=== PATIENT | male | born 1950 | race African-American/Black ===

== ENCOUNTER 2021-08-13 08:32 | Inpatient (IN) | payer OTHER ==
[2021-08-13] MEDS ORDERED: Boostrix 0.5 ML (Tdap) VIAL ONE (08:46)
[2021-08-13] MEDS ORDERED: Calcium Chloride 1 GM/10 ML Abboject SYRINGE ONE (08:57)
[2021-08-13 09:01] LABS: #Basophils 0.1 thou/uL (0.0-0.2); #Eosinphils 0.2 thou/uL (0.0-0.7); #Lymphocytes 2.1 thou/uL (1.20-3.40); #Monocytes 0.5 thou/uL (0.11-0.59); #Neutrophils 9.6 thou/uL (1.40-6.50); %Basophils 0.4 % (0.0-1.0); %Eosinophils 1.5 % (0.0-10.0); %Lymphocytes 16.9 % (21.0-51.0); %Monocytes 3.8 % (0.0-10.0); %Neutrophils 77.4 % (42.0-75.0); Hemoglobin 10.9 g/dL (14.0-18.0); Mean Corpuscular HGB CONC 31.4 g/dL (32.0-36.0); Mean Corpuscular Hemoglobin 27.9 pg (27.0-31.0); Mean Corpuscular Volume 88.8 fL (78.0-98.0); Mean Platelet Volume 8.9 fL (7.4-10.4); Platelet Count 155 thou/uL (130-400); RBC Distribution Width 13.7 % (11.5-14.5); White Blood Cell (WBC) Count 12.4 thou/uL (4.8-10.8)
[2021-08-13] MEDS ORDERED: Ondansetron PF 4 MG/2 ML Vial ONE ×2 (09:06→15:20)
[2021-08-13 09:10] LABS: Bilirubin Negative (Negative); Blood, Urine 2+ (Negative); Clarity Turbid (Clear); Glucose, Urine (Dipstick) Normal (Negative); Ketone, Urine Negative (Negative); Leukocyte 250 Leu/uL (Negative); Nitrite Negative (Negative); Protein, Urine (Dipstick) Negative (Neg-Trace); RBC/HPF 21-50 HPF (0-3); Specific Gravity, Urine 1.024 (1.002-1.036); Squamous Epithelial 0-3 HPF (0-3); Urobilinogen Normal mg/dL (Less than 2)
[2021-08-13 09:11] LABS: Bacteria/HPF Rare-Few HPF (None Seen)
[2021-08-13 09:12] LABS: Prothrombin Time 13.6 sec (12.0-14.7)
[2021-08-13 09:14] LABS: ALT (SGPT) 20 U/L (8-55); AST (SGOT) 30 U/L (5-34); Albumin 3.2 g/dL (3.4-4.8); Alcohol Less than 10 mg/dL (Less than 10); Alkaline Phosphatase 76 U/L (40-110); Anion Gap 17 mmol/L (10-20); BUN (Urea Nitrogen) 24 mg/dL (8.4-25.7); Bilirubin, Total 0.4 mg/dL (0.2-1.2); Calc. Creatinine Clearance 0 mL/min (70-130); Calcium 8.7 mg/dL (7.8-10.44); Carbon Dioxide 19 mmol/L (23-31); Chloride 106 mmol/L (98-107); Globulin 2.2 g/dL (2.4-3.5); Glucose 208 mg/dL (83-110); Potassium 4.9 mmol/L (3.5-5.1); Protein, Total 5.4 g/dL (5.8-8.1); Sodium 137 mmol/L (136-145)
[2021-08-13 09:18] LABS: PTT 17.9 sec (22.9-36.1)
[2021-08-13] MEDS ORDERED: Iopamidol-370 76% 500 ML 1 ML ONE ×2 (09:22→09:26)
[2021-08-13 09:32] LABS: Actual Bicarbonate (HCO3a) 18.1 mEq/L (22-28); Analyzer IN Cardio ER; Base Excess (BEa) -7.1 mEq/L (-2.0 to +3.0); CO2 Tension 35.2 mmHg (35.0-45.0); Calcium, Ionized (arterial) 0.91 mmol/L (1.12-1.30); Carboxyhemoglobin (COHb) 0.3 gm% (0.0-3.0); Hemoglobin (Hb) 11.5 g/dL (14.0-18.0); O2 Tension (PaO2), arterial 223.2 mmHg (> 70.0); Potassium - ABG Lab 4.46 mmol/L (3.70-5.30); pH, Arterial 7.33 (7.35-7.45)
[2021-08-13 09:33] LABS: Puncture Site RRA
[2021-08-13] MEDS ORDERED: Insulin Regular 300 UNITS/3 ML VIAL SC PRN (09:39)
[2021-08-13] MEDS ORDERED: Dextrose 5% in Water 1,000 ML IV PRN (09:39)
[2021-08-13] MEDS ORDERED: Dextrose 50% Abboject 50 ML SYRINGE SLOW IVP PRN (09:39)
[2021-08-13] MEDS ORDERED: Morphine 2 MG/ML VIAL SLOW IVP PRN (09:39)
[2021-08-13] MEDS ORDERED: hydrALAZINE 20 MG/ML VIAL SLOW IVP PRN (09:39)
[2021-08-13] MEDS ORDERED: Ondansetron PF 4 MG/2 ML Vial IVP PRN (09:39)
[2021-08-13] MEDS ORDERED: Sodium Chloride 0.9% 1,000 ML IV SCH (09:45)
[2021-08-13] MEDS ORDERED: Fentanyl 100 MCG/2 ML VIAL ONE ×2 (09:49→16:47)
[2021-08-13 09:51] LABS: Magnesium 1.8 mg/dL (1.6-2.6); Phosphorus 5.5 mg/dL (2.3-4.7)
[2021-08-13] MEDS ORDERED: Sodium Bicarbonate 150 MEQ in Dextrose 5% in Water 1,000 ML IV SCH (10:00)
[2021-08-13] MEDS ORDERED: Sodium Bicarb 50 MEQ/50 ML VIAL IVP SCH (10:00)
[2021-08-13] MEDS: Morphine 4 MG/ML VIAL SLOW IVP PRN ×2 (11:46→20:19)
[2021-08-13 12:00] LABS: SARS-CoV-2 NAA Rapid Test Not Detected (NotDetected)
[2021-08-13] MEDS ORDERED: Magnesium 2 GM/50 ML(in water) 2 GM in Premix Bag 1 BAG IVPB SCH (12:00)
[2021-08-13] MEDS ORDERED: ceFAZolin 2 GM/Dextrose 50 ML 2 GM in Premix Bag 1 BAG IVPB SCH (13:30)
[2021-08-13] MEDS ORDERED: CEFAZOLIN 2 GM in Sodium Chloride 0.9% 100 ML IVPB SCH ×2 (14:00→15:00)
[2021-08-13] MEDS ORDERED: Lidocaine 2% Jelly 5 ML TUBE ONE (14:45)
[2021-08-13] MEDS ORDERED: fentaNYL Citrate/PF 100 MCG/2 ML SYRINGE ONE (14:45)
[2021-08-13] MEDS ORDERED: Glycopyrrolate 0.2 MG/ML 5 ML SYRINGE ONE ×2 (15:20→17:26)
[2021-08-13] MEDS ORDERED: PHENYLEPHRINE-NS 100 MCG/ML 10 ML SYRINGE ONE (15:20)
[2021-08-13] MEDS ORDERED: Succinylcholine 200 MG/10 ml SYRINGE FS ONE (15:20)
[2021-08-13] MEDS ORDERED: Lidocaine 1% PF 5 ML VIAL ONE (15:20)
[2021-08-13] MEDS ORDERED: Dexamethasone 20 MG/5 ML VIAL ONE (15:20)
[2021-08-13] MEDS ORDERED: PROPOFOL 200 MG/20 ML VIAL ONE (15:20)
[2021-08-13] MEDS ORDERED: Rocuronium Bromide 10 MG/ML (10ML VIAL) ONE (15:20)
[2021-08-13 18:37] LABS: #Lymphocytes 0.3 thou/uL (1.20-3.40); #Monocytes 0.2 thou/uL (0.11-0.59); #Neutrophils 6.1 thou/uL (1.40-6.50); %Eosinophils 0.1 % (0.0-10.0); %Lymphocytes 3.9 % (21.0-51.0); %Monocytes 3.2 % (0.0-10.0); %Neutrophils 92.8 % (42.0-75.0); Hemoglobin 11.2 g/dL (14.0-18.0); Mean Corpuscular HGB CONC 32.2 g/dL (32.0-36.0); Mean Corpuscular Hemoglobin 28.5 pg (27.0-31.0); Mean Corpuscular Volume 88.7 fL (78.0-98.0); Mean Platelet Volume 7.9 fL (7.4-10.4); Platelet Count 171 thou/uL (130-400); RBC Distribution Width 14.1 % (11.5-14.5); Red Blood Cell (RBC) Count 3.93 mill/uL (4.70-6.10); White Blood Cell (WBC) Count 6.6 thou/uL (4.8-10.8)
[2021-08-13 18:58] LABS: Anion Gap 13 mmol/L (10-20); BUN (Urea Nitrogen) 20 mg/dL (8.4-25.7); Calc. Creatinine Clearance 123 mL/min (70-130); Calcium 8.7 mg/dL (7.8-10.44); Carbon Dioxide 25 mmol/L (23-31); Chloride 106 mmol/L (98-107); Glucose 144 mg/dL (83-110); Magnesium 2.3 mg/dL (1.6-2.6); Phosphorus 4.7 mg/dL (2.3-4.7); Potassium 4.6 mmol/L (3.5-5.1); Sodium 139 mmol/L (136-145)
[2021-08-13 19:02] LABS: Troponin I 0.093 ng/mL (< 0.028)
[2021-08-13] MEDS: Pantoprazole 40 MG VIAL IVP SCH (20:21)
[2021-08-13] MEDS ORDERED: Famotidine/PF 20 mg/2ml Vial SLOW IVP SCH (21:00)
[2021-08-13] MEDS: CEFAZOLIN 2 GM in Sodium Chloride 0.9% 100 ML IVPB SCH (22:36)
[2021-08-14 00:24] LABS: Troponin I 0.052 ng/mL (< 0.028)
[2021-08-14] MEDS: Morphine 4 MG/ML VIAL SLOW IVP PRN ×3 (02:10→08:28)
[2021-08-14] MEDS ORDERED: Sodium Chloride 0.9% 1,000 ML IV SCH ×2 (02:15→16:30)
[2021-08-14 04:05] LABS: #Lymphocytes 0.9 thou/uL (1.20-3.40); #Monocytes 0.5 thou/uL (0.11-0.59); #Neutrophils 5.6 thou/uL (1.40-6.50); %Basophils 0.3 % (0.0-1.0); %Eosinophils 0.1 % (0.0-10.0); %Lymphocytes 13.2 % (21.0-51.0); %Monocytes 6.5 % (0.0-10.0); %Neutrophils 79.9 % (42.0-75.0); Hemoglobin 10.8 g/dL (14.0-18.0); Mean Corpuscular HGB CONC 33.2 g/dL (32.0-36.0); Mean Corpuscular Hemoglobin 29.4 pg (27.0-31.0); Mean Corpuscular Volume 88.5 fL (78.0-98.0); Mean Platelet Volume 8.4 fL (7.4-10.4); Platelet Count 159 thou/uL (130-400); RBC Distribution Width 14.3 % (11.5-14.5); Red Blood Cell (RBC) Count 3.67 mill/uL (4.70-6.10)
[2021-08-14 04:36] LABS: Anion Gap 11 mmol/L (10-20); BUN (Urea Nitrogen) 18 mg/dL (8.4-25.7); Calc. Creatinine Clearance 136 mL/min (70-130); Calcium 8.6 mg/dL (7.8-10.44); Carbon Dioxide 26 mmol/L (23-31); Chloride 106 mmol/L (98-107); Glucose 140 mg/dL (83-110); Magnesium 2.3 mg/dL (1.6-2.6); Phosphorus 4.9 mg/dL (2.3-4.7); Potassium 4.4 mmol/L (3.5-5.1); Sodium 139 mmol/L (136-145)
[2021-08-14 05:02] LABS: CK (CPK) 8323 U/L (30-200)
[2021-08-14] MEDS: CEFAZOLIN 2 GM in Sodium Chloride 0.9% 100 ML IVPB SCH (05:19)
[2021-08-14] MEDS ORDERED: traMADol HCl 50 MG TAB PO PRN (09:14)
[2021-08-14] MEDS: Acetaminophen 500 MG TAB PO SCH ×3 (11:01→21:45)
[2021-08-14] MEDS: Enoxaparin Sodium 30 MG/0.3 ML SYRINGE SC SCH ×2 (11:01→21:44)
[2021-08-14] MEDS: traMADol HCl 50 MG TAB PO SCH ×3 (12:42→23:47)
[2021-08-14] MEDS: Gabapentin 100 MG CAP PO SCH ×2 (15:53→21:44)
[2021-08-14] MEDS: Ibuprofen 200 MG TAB PO SCH ×2 (15:54→21:45)
[2021-08-14] MEDS: Pantoprazole 40 MG VIAL IVP SCH (21:44)
[2021-08-14] MEDS: Senokot S 8.6-50 MG TAB PO SCH (21:44)
[2021-08-15] MEDS: Acetaminophen 500 MG TAB PO SCH ×4 (03:45→21:05)
[2021-08-15] MEDS: Morphine 2 MG/ML VIAL SLOW IVP PRN ×2 (03:46→10:18)
[2021-08-15] MEDS: traMADol HCl 50 MG TAB PO SCH ×4 (05:11→23:47)
[2021-08-15] MEDS: Ibuprofen 200 MG TAB PO SCH ×3 (05:11→21:05)
[2021-08-15 05:46] LABS: #Eosinphils 0.3 thou/uL (0.0-0.7); #Lymphocytes 1.1 thou/uL (1.20-3.40); #Monocytes 0.6 thou/uL (0.11-0.59); #Neutrophils 6.3 thou/uL (1.40-6.50); %Basophils 0.1 % (0.0-1.0); %Eosinophils 3.8 % (0.0-10.0); %Lymphocytes 12.9 % (21.0-51.0); %Monocytes 6.9 % (0.0-10.0); %Neutrophils 76.3 % (42.0-75.0); Hemoglobin 9.7 g/dL (14.0-18.0); Mean Corpuscular Hemoglobin 29.8 pg (27.0-31.0); Mean Corpuscular Volume 90.3 fL (78.0-98.0); Mean Platelet Volume 9.1 fL (7.4-10.4); Platelet Count 122 thou/uL (130-400); RBC Distribution Width 13.9 % (11.5-14.5); Red Blood Cell (RBC) Count 3.26 mill/uL (4.70-6.10); White Blood Cell (WBC) Count 8.3 thou/uL (4.8-10.8)
[2021-08-15 06:17] LABS: Anion Gap 14 mmol/L (10-20); BUN (Urea Nitrogen) 14 mg/dL (8.4-25.7); Calc. Creatinine Clearance 162 mL/min (70-130); Calcium 8.6 mg/dL (7.8-10.44); Carbon Dioxide 24 mmol/L (23-31); Chloride 103 mmol/L (98-107); Glucose 104 mg/dL (83-110); Magnesium 2.1 mg/dL (1.6-2.6); Phosphorus 3.3 mg/dL (2.3-4.7); Potassium 4.5 mmol/L (3.5-5.1); Sodium 136 mmol/L (136-145)
[2021-08-15] MEDS ORDERED: PHOS-NAK 1 PKT PACK PO SCH (07:45)
[2021-08-15] MEDS ORDERED: ceFAZolin 2 GM/Dextrose 50 ML 2 GM in Premix Bag 1 BAG IVPB SCH (08:30)
[2021-08-15] MEDS ORDERED: CEFAZOLIN 2 GM in Sodium Chloride 0.9% 100 ML IVPB SCH (08:30)
[2021-08-15] MEDS: Enoxaparin Sodium 30 MG/0.3 ML SYRINGE SC SCH ×2 (09:07→21:14)
[2021-08-15] MEDS: Senokot S 8.6-50 MG TAB PO SCH ×2 (09:20→21:05)
[2021-08-15] MEDS: Polyethylene Glycol 3350 17 GM Packet PO SCH (09:20)
[2021-08-15] MEDS: Gabapentin 100 MG CAP PO SCH ×3 (09:20→21:04)
[2021-08-15] MEDS: Cyclobenzaprine 10 MG TAB PO PRN (09:23)
[2021-08-15] MEDS: Pantoprazole 40 MG VIAL IVP SCH (21:05)
[2021-08-16] MEDS: Acetaminophen 500 MG TAB PO SCH ×4 (03:22→21:31)
[2021-08-16] MEDS: traMADol HCl 50 MG TAB PO SCH ×4 (05:30→23:13)
[2021-08-16] MEDS: Ibuprofen 200 MG TAB PO SCH ×3 (05:37→21:31)
[2021-08-16 05:40] LABS: #Eosinphils 0.5 thou/uL (0.0-0.7); #Lymphocytes 1.4 thou/uL (1.20-3.40); #Monocytes 0.6 thou/uL (0.11-0.59); #Neutrophils 7.7 thou/uL (1.40-6.50); %Basophils 0.3 % (0.0-1.0); %Eosinophils 4.9 % (0.0-10.0); %Lymphocytes 13.6 % (21.0-51.0); %Monocytes 5.7 % (0.0-10.0); %Neutrophils 75.5 % (42.0-75.0); Hemoglobin 8.9 g/dL (14.0-18.0); Mean Corpuscular HGB CONC 32.1 g/dL (32.0-36.0); Mean Corpuscular Hemoglobin 29.4 pg (27.0-31.0); Mean Corpuscular Volume 91.4 fL (78.0-98.0); Platelet Count 121 thou/uL (130-400); RBC Distribution Width 13.7 % (11.5-14.5); Red Blood Cell (RBC) Count 3.01 mill/uL (4.70-6.10); White Blood Cell (WBC) Count 10.2 thou/uL (4.8-10.8)
[2021-08-16 05:51] LABS: Anion Gap 13 mmol/L (10-20); BUN (Urea Nitrogen) 16 mg/dL (8.4-25.7); Calc. Creatinine Clearance 165 mL/min (70-130); Carbon Dioxide 27 mmol/L (23-31); Chloride 99 mmol/L (98-107); Glucose 102 mg/dL (83-110); Magnesium 2.3 mg/dL (1.6-2.6); Phosphorus 3.4 mg/dL (2.3-4.7); Potassium 4.6 mmol/L (3.5-5.1); Sodium 134 mmol/L (136-145)
[2021-08-16 06:04] LABS: CK (CPK) 5440 U/L (30-200)
[2021-08-16] MEDS ORDERED: PHOS-NAK 1 PKT PACK PO SCH (08:00)
[2021-08-16] MEDS: Gabapentin 100 MG CAP PO SCH ×3 (08:17→21:30)
[2021-08-16] MEDS: Polyethylene Glycol 3350 17 GM Packet PO SCH (08:17)
[2021-08-16] MEDS: Enoxaparin Sodium 30 MG/0.3 ML SYRINGE SC SCH ×2 (08:17→21:33)
[2021-08-16] MEDS: Tamsulosin HCl 0.4 MG CAP PO SCH (08:17)
[2021-08-16] MEDS: Senokot S 8.6-50 MG TAB PO SCH ×2 (08:17→21:31)
[2021-08-16] MEDS: Cyclobenzaprine 10 MG TAB PO PRN ×2 (08:19→16:30)
[2021-08-16] MEDS ORDERED: fentaNYL Citrate/PF 100 MCG/2 ML SYRINGE ONE ×2 (10:24→13:25)
[2021-08-16] MEDS ORDERED: Sodium Chloride 0.9% 100 ML ONE (11:13)
[2021-08-16] MEDS ORDERED: CEFAZOLIN 2 GM VIAL ONE (11:13)
[2021-08-16] MEDS ORDERED: PHENYLEPHRINE-NS 100 MCG/ML 10 ML SYRINGE ONE (12:40)
[2021-08-16] MEDS ORDERED: Promethazine HCl 25 MG/ML VIAL IVPB PRN (14:51)
[2021-08-16] MEDS ORDERED: Morphine Sulfate 2 MG/ML SYRINGE SLOW IVP PRN (14:51)
[2021-08-16] MEDS ORDERED: HYDROmorphone 2 MG/ML VIAL SLOW IVP PRN (14:51)
[2021-08-16] MEDS ORDERED: Meperidine HCl/PF 25 MG/ML VIAL SLOW IVP PRN (14:51)
[2021-08-16] MEDS ORDERED: Promethazine HCl 25 MG/ML VIAL IM PRN (14:51)
[2021-08-16] MEDS ORDERED: Ondansetron HCl/PF 4 MG/2 ML Vial IVP PRN (14:51)
[2021-08-16] MEDS ORDERED: Fentanyl 100 MCG/2 ML VIAL ONE ×2 (15:00→15:18)
[2021-08-16] MEDS: Morphine 2 MG/ML VIAL SLOW IVP PRN (16:30)
[2021-08-16] MEDS: CEFAZOLIN 2 GM in Sodium Chloride 0.9% 100 ML IVPB SCH (18:04)
[2021-08-16] MEDS: Atorvastatin Calcium 20 MG TAB PO SCH (21:30)
[2021-08-16] MEDS: Pantoprazole 40 MG VIAL IVP SCH (21:31)
[2021-08-17] MEDS: CEFAZOLIN 2 GM in Sodium Chloride 0.9% 100 ML IVPB SCH ×3 (02:59→18:35)
[2021-08-17] MEDS: Acetaminophen 500 MG TAB PO SCH ×4 (02:59→21:15)
[2021-08-17] MEDS: traMADol HCl 50 MG TAB PO SCH ×3 (05:27→17:06)
[2021-08-17] MEDS: Ibuprofen 200 MG TAB PO SCH ×3 (05:27→21:16)
[2021-08-17 05:59] LABS: #Eosinphils 0.1 thou/uL (0.0-0.7); #Lymphocytes 1.1 thou/uL (1.20-3.40); #Monocytes 0.7 thou/uL (0.11-0.59); #Neutrophils 8.8 thou/uL (1.40-6.50); %Basophils 0.2 % (0.0-1.0); %Eosinophils 1.3 % (0.0-10.0); %Monocytes 6.2 % (0.0-10.0); %Neutrophils 82.3 % (42.0-75.0); Hemoglobin 8.3 g/dL (14.0-18.0); Mean Corpuscular HGB CONC 32.4 g/dL (32.0-36.0); Mean Corpuscular Hemoglobin 29.7 pg (27.0-31.0); Mean Corpuscular Volume 91.6 fL (78.0-98.0); Mean Platelet Volume 9.1 fL (7.4-10.4); Platelet Count 144 thou/uL (130-400); Red Blood Cell (RBC) Count 2.81 mill/uL (4.70-6.10); White Blood Cell (WBC) Count 10.7 thou/uL (4.8-10.8)
[2021-08-17 06:35] LABS: Anion Gap 13 mmol/L (10-20); BUN (Urea Nitrogen) 15 mg/dL (8.4-25.7); Calc. Creatinine Clearance 175 mL/min (70-130); Calcium 8.4 mg/dL (7.8-10.44); Carbon Dioxide 25 mmol/L (23-31); Chloride 99 mmol/L (98-107); Glucose 115 mg/dL (83-110); Magnesium 2.1 mg/dL (1.6-2.6); Phosphorus 3.2 mg/dL (2.3-4.7); Potassium 4.7 mmol/L (3.5-5.1); Sodium 132 mmol/L (136-145)
[2021-08-17] MEDS ORDERED: PHOS-NAK 1 PKT PACK PO SCH (07:30)
[2021-08-17] MEDS ORDERED: Bisacodyl 10 MG SUPP PR SCH (07:30)
[2021-08-17] MEDS: Tamsulosin HCl 0.4 MG CAP PO SCH (09:30)
[2021-08-17] MEDS: Senokot S 8.6-50 MG TAB PO SCH ×2 (09:31→21:15)
[2021-08-17] MEDS: Lisinopril 20 MG TAB PO SCH (09:31)
[2021-08-17] MEDS: Gabapentin 100 MG CAP PO SCH ×3 (09:31→21:15)
[2021-08-17] MEDS: Polyethylene Glycol 3350 17 GM Packet PO SCH (09:32)
[2021-08-17] MEDS: Enoxaparin Sodium 30 MG/0.3 ML SYRINGE SC SCH ×2 (09:32→21:14)
[2021-08-17] MEDS ORDERED: Sodium Chloride 0.9% 1,000 ML IV SCH (14:45)
[2021-08-17] MEDS ORDERED: Hydrocortisone Sod Succ/PF 100 mg/2 ml Vial IVP SCH (16:00)
[2021-08-17] MEDS: Atorvastatin Calcium 20 MG TAB PO SCH (21:14)
[2021-08-17] MEDS: Pantoprazole 40 MG VIAL IVP SCH (21:15)
[2021-08-18] MEDS: traMADol HCl 50 MG TAB PO SCH ×4 (00:12→17:58)
[2021-08-18] MEDS: Hydrocortisone Sod Succ/PF 100 mg/2 ml Vial IVP SCH ×4 (00:13→17:58)
[2021-08-18] MEDS: Acetaminophen 500 MG TAB PO SCH ×4 (03:06→20:27)
[2021-08-18] MEDS: CEFAZOLIN 2 GM in Sodium Chloride 0.9% 100 ML IVPB SCH ×3 (03:07→20:16)
[2021-08-18 05:27] LABS: #Eosinphils 0.1 thou/uL (0.0-0.7); #Lymphocytes 0.8 thou/uL (1.20-3.40); #Monocytes 0.6 thou/uL (0.11-0.59); #Neutrophils 9.6 thou/uL (1.40-6.50); %Basophils 0.1 % (0.0-1.0); %Eosinophils 0.6 % (0.0-10.0); %Lymphocytes 7.3 % (21.0-51.0); %Monocytes 5.2 % (0.0-10.0); %Neutrophils 86.8 % (42.0-75.0); Hemoglobin 6.9 g/dL (14.0-18.0); Mean Corpuscular HGB CONC 33.2 g/dL (32.0-36.0); Mean Corpuscular Hemoglobin 30.5 pg (27.0-31.0); Mean Corpuscular Volume 91.8 fL (78.0-98.0); Mean Platelet Volume 8.5 fL (7.4-10.4); Platelet Count 129 thou/uL (130-400); RBC Distribution Width 14.1 % (11.5-14.5); Red Blood Cell (RBC) Count 2.27 mill/uL (4.70-6.10); White Blood Cell (WBC) Count 11.1 thou/uL (4.8-10.8)
[2021-08-18] MEDS: Ibuprofen 200 MG TAB PO SCH ×3 (05:48→22:41)
[2021-08-18 05:51] LABS: Anion Gap 10 mmol/L (10-20); BUN (Urea Nitrogen) 24 mg/dL (8.4-25.7); Calc. Creatinine Clearance 162 mL/min (70-130); Calcium 8.4 mg/dL (7.8-10.44); Carbon Dioxide 28 mmol/L (23-31); Chloride 100 mmol/L (98-107); Glucose 139 mg/dL (83-110); Magnesium 2.3 mg/dL (1.6-2.6); Phosphorus 3.6 mg/dL (2.3-4.7); Potassium 4.8 mmol/L (3.5-5.1); Sodium 133 mmol/L (136-145)
[2021-08-18] MEDS ORDERED: PHOS-NAK 1 PKT PACK PO SCH (07:45)
[2021-08-18] MEDS: Polyethylene Glycol 3350 17 GM Packet PO SCH (08:28)
[2021-08-18] MEDS: Ascorbic Acid 500 mg Chewable Tablet PO SCH ×2 (08:29→20:17)
[2021-08-18] MEDS: Senokot S 8.6-50 MG TAB PO SCH ×2 (08:29→20:17)
[2021-08-18] MEDS: Tamsulosin HCl 0.4 MG CAP PO SCH (08:29)
[2021-08-18] MEDS: Gabapentin 100 MG CAP PO SCH ×3 (08:29→20:27)
[2021-08-18] MEDS: Ferrous Sulfate 325 MG TAB PO SCH ×2 (08:29→17:58)
[2021-08-18] MEDS: Enoxaparin Sodium 30 MG/0.3 ML SYRINGE SC SCH ×2 (08:30→20:17)
[2021-08-18] MEDS: Lisinopril 20 MG TAB PO SCH (08:30)
[2021-08-18] MEDS: Atorvastatin Calcium 20 MG TAB PO SCH (20:17)
[2021-08-18] MEDS: Pantoprazole 40 MG VIAL IVP SCH (20:18)
[2021-08-19] MEDS: Hydrocortisone Sod Succ/PF 100 mg/2 ml Vial IVP SCH ×4 (00:14→18:15)
[2021-08-19] MEDS: traMADol HCl 50 MG TAB PO SCH ×4 (00:14→18:15)
[2021-08-19] MEDS: Acetaminophen 500 MG TAB PO SCH ×3 (04:15→15:45)
[2021-08-19] MEDS: CEFAZOLIN 2 GM in Sodium Chloride 0.9% 100 ML IVPB SCH ×3 (04:16→18:16)
[2021-08-19 05:59] LABS: Anion Gap 11 mmol/L (10-20); BUN (Urea Nitrogen) 19 mg/dL (8.4-25.7); Calc. Creatinine Clearance 181 mL/min (70-130); Calcium 8.9 mg/dL (7.8-10.44); Carbon Dioxide 26 mmol/L (23-31); Chloride 100 mmol/L (98-107); Glucose 122 mg/dL (83-110); Magnesium 2.3 mg/dL (1.6-2.6); Phosphorus 2.7 mg/dL (2.3-4.7); Potassium 4.4 mmol/L (3.5-5.1); Sodium 133 mmol/L (136-145)
[2021-08-19] MEDS: Ibuprofen 200 MG TAB PO SCH (06:10)
[2021-08-19 06:23] LABS: Band 10 % (5-11); Lymphocytes 13 % (21-51); MDiff Complete? YES; Mean Corpuscular HGB CONC 33.4 g/dL (32.0-36.0); Mean Corpuscular Hemoglobin 30.9 pg (27.0-31.0); Mean Corpuscular Volume 92.3 fL (78.0-98.0); Mean Platelet Volume 8.1 fL (7.4-10.4); Monocytes 4 % (0-10); Neutrophil 73 % (42-75); Platelet Count 168 thou/uL (130-400); RBC Distribution Width 14.1 % (11.5-14.5); Red Blood Cell (RBC) Count 2.58 mill/uL (4.70-6.10); White Blood Cell (WBC) Count 13.3 thou/uL (4.8-10.8)
[2021-08-19] MEDS ORDERED: Ibuprofen 200 MG TAB PO PRN (07:26)
[2021-08-19] MEDS ORDERED: PHOS-NAK 1 PKT PACK PO SCH (07:30)
[2021-08-19] MEDS ORDERED: Magnesium Citrate 300 ML BOT PO SCH (08:45)
[2021-08-19] MEDS: Tamsulosin HCl 0.4 MG CAP PO SCH (10:01)
[2021-08-19] MEDS: Polyethylene Glycol 3350 17 GM Packet PO SCH (10:01)
[2021-08-19] MEDS: Ascorbic Acid 500 mg Chewable Tablet PO SCH ×2 (10:01→19:42)
[2021-08-19] MEDS: Ferrous Sulfate 325 MG TAB PO SCH ×2 (10:01→18:15)
[2021-08-19] MEDS: Senokot S 8.6-50 MG TAB PO SCH (10:01)
[2021-08-19] MEDS: Lisinopril 20 MG TAB PO SCH (10:02)
[2021-08-19] MEDS: Enoxaparin Sodium 30 MG/0.3 ML SYRINGE SC SCH ×2 (10:02→19:44)
[2021-08-19] MEDS: Gabapentin 100 MG CAP PO SCH ×3 (10:02→19:43)
[2021-08-19 14:31] VITALS: BMI 45.0
[2021-08-19] MEDS: Pantoprazole 40 MG VIAL IVP SCH (19:44)
[2021-08-19] MEDS: Atorvastatin Calcium 20 MG TAB PO SCH (19:44)
[2021-08-19 19:57] VITALS: BP 126/68; TEMP 97.8
== END 2021-08-19 20:07 | DRG 956 ==
LOC: ERS 08:32 → CCU 08:44 → SURG A 08-14 22:34
PROVIDERS: ADMIT Surgery; ATTEND Surgery
PROC: 0QH Lower Bones, Insertion (ICD-10-PCS; 2021-08-13)
PROC: 0QHG05Z Insertion of External Fixation Device into Right Tibia, Open Approach (ICD-10-PCS; 2021-08-13)
PROC: 30233K1 Transfusion of Nonautologous Frozen Plasma into Peripheral Vein, Percutaneous Approach (ICD-10-PCS; 2021-08-13)
PROC: 30233N1 Transfusion of Nonautologous Red Blood Cells into Peripheral Vein, Percutaneous Approach (ICD-10-PCS; 2021-08-13)
PROC: 6A550Z2 Pheresis of Platelets, Single (ICD-10-PCS; 2021-08-13)
PROC: 02HV33Z Insertion of Infusion Device into Superior Vena Cava, Percutaneous Approach (ICD-10-PCS; 2021-08-13)
PROC: 0QSB06Z Reposition Right Lower Femur with Intramedullary Internal Fixation Device, Open Approach (ICD-10-PCS; principal; 2021-08-16)
PROC: 0QSG04Z Reposition Right Tibia with Internal Fixation Device, Open Approach (ICD-10-PCS; 2021-08-16)
PROC: 0QSJ04Z Reposition Right Fibula with Internal Fixation Device, Open Approach (ICD-10-PCS; 2021-08-16)
PROC: 0QP Lower Bones, Removal (ICD-10-PCS; 2021-08-16)
PROC: 0QPGX5Z Removal of External Fixation Device from Right Tibia, External Approach (ICD-10-PCS; 2021-08-16)
DX: S72.491 Other fracture of lower end of right femur (principal); Z20.822 Contact with and (suspected) exposure to COVID-19; Z23 Encounter for immunization; S27.321A Contusion of lung, unilateral, initial encounter; R57.8 Other shock; K66.1 Hemoperitoneum; S06.0X9A Concussion with loss of consciousness of unspecified duration, initial encounter; S22.079A Unspecified fracture of T9-T10 vertebra, initial encounter for closed fracture; S22.41XA Multiple fractures of ribs, right side, initial encounter for closed fracture; D62 Acute posthemorrhagic anemia; N17.9 Acute kidney failure, unspecified; S82.61XA Displaced fracture of lateral malleolus of right fibula, initial encounter for closed fracture; I10 Essential (primary) hypertension; E11.9 Type 2 diabetes mellitus without complications; N40.0 Benign prostatic hyperplasia without lower urinary tract symptoms; S82.391A Other fracture of lower end of right tibia, initial encounter for closed fracture; S20.211A Contusion of right front wall of thorax, initial encounter; T79.6XXA Traumatic ischemia of muscle, initial encounter; R40.2362 Coma scale, best motor response, obeys commands, at arrival to emergency department; R40.2142 Coma scale, eyes open, spontaneous, at arrival to emergency department; R40.2242 Coma scale, best verbal response, confused conversation, at arrival to emergency department; V44.5XXA Car driver injured in collision with heavy transport vehicle or bus in traffic accident, initial encounter; Y92.410 Unspecified street and highway as the place of occurrence of the external cause; Z79.899 Other long term (current) drug therapy; Z79.84 Long term (current) use of oral hypoglycemic drugs
CPT/HCPCS: 36415; 36416; 36430; 36556; 36600; 51702; 70450; 70498; 71045; 71260; 72125; 72170; 74177; 75635; 76000; 80048; 80053; 80307; 81003; 81015; 82533; 82550; 82805; 83605; 83735; 84100; 84484; 85025; 85610; 85730; 86850; 86900; 86901; 90471; 90715; 93005; 93010; 94760; 96374; 96375; C1713; C1776; C1889; C9113; G0390; J0690; J1100; J1650; J1720; J1815; J2270; J2405; J2704; J3010; J3475; J3490; J7050; J7070; P9016; P9035; P9048; P9059; Q9967; U0002; U0003; U0005

== ENCOUNTER 2021-11-08 05:37 | Day surgery (SDC) | payer OTHER ==
[2021-11-07 09:48] VITALS: BMI 42.2
[2021-11-08] MEDS ORDERED: Sodium Chloride 0.9% 100 ML ONE (07:09)
[2021-11-08] MEDS ORDERED: CEFAZOLIN 2 GM VIAL ONE (07:09)
[2021-11-08] MEDS ORDERED: fentaNYL Citrate/PF 100 MCG/2 ML SYRINGE ONE (07:21)
[2021-11-08] MEDS ORDERED: Phenylephrine 10 MG/ML VIAL ONE ×2 (07:22→07:53)
[2021-11-08] MEDS ORDERED: Famotidine/PF 20 mg/2ml Vial ONE (07:22)
[2021-11-08 07:30] LABS: Anion Gap 15 mmol/L (10-20); BUN (Urea Nitrogen) 11 mg/dL (8.4-25.7); Calc. Creatinine Clearance 166 mL/min (70-130); Calcium 9.2 mg/dL (7.8-10.44); Carbon Dioxide 24 mmol/L (23-31); Chloride 104 mmol/L (98-107); Estimated GFR 96; Glucose 89 mg/dL (83-110); Potassium 4.6 mmol/L (3.5-5.1); Sodium 138 mmol/L (136-145)
[2021-11-08] MEDS ORDERED: PROPOFOL 200 MG/20 ML VIAL ONE (07:53)
[2021-11-08] MEDS ORDERED: Glycopyrrolate 0.2 MG/ML 5 ML SYRINGE ONE (07:53)
[2021-11-08] MEDS ORDERED: NEOSTIGMINE 3 MG/3 ML SYR 3 MG/3 ML SYRINGE ONE (07:53)
[2021-11-08] MEDS ORDERED: Lidocaine 1% MPF 2 ML VIAL ONE (07:53)
[2021-11-08] MEDS ORDERED: Ondansetron PF 4 MG/2 ML Vial ONE (07:53)
[2021-11-08] MEDS ORDERED: Rocuronium Bromide 10 MG/ML (10ML VIAL) ONE (07:53)
[2021-11-08] MEDS ORDERED: Meperidine HCl/PF 25 MG/ML VIAL SLOW IVP PRN (08:49)
[2021-11-08] MEDS ORDERED: PACU-Morphine 4MG/ML VIAL SLOW IVP PRN (08:49)
[2021-11-08] MEDS ORDERED: Promethazine HCl 25 MG/ML VIAL IVPB PRN (08:49)
[2021-11-08] MEDS ORDERED: Promethazine HCl 25 MG/ML VIAL IM PRN (08:49)
[2021-11-08 09:00] LABS: Hemoglobin 9.8 g/dL (14.0-18.0)
[2021-11-08] MEDS ORDERED: SUGAMMADEX SODIUM 200 MG/2 ML VIAL ONE (10:08)
[2021-11-08] MEDS ORDERED: Fentanyl 100 MCG/2 ML VIAL ONE ×2 (10:21→10:35)
[2021-11-08] MEDS ORDERED: Ondansetron HCl/PF 4 MG/2 ML Vial IVP PRN (10:50)
[2021-11-08] MEDS ORDERED: HYDROmorphone 2 MG/ML VIAL SLOW IVP PRN (10:50)
[2021-11-08] MEDS ORDERED: HYDROmorphone 2 MG/ML VIAL ONE (10:51)
== END 2021-11-08 14:15 | disposition home or self-care (01) ==
LOC: SDC 05:37
PROVIDERS: ATTEND Orthopaedic Surgery
PROC: 0QS604Z Reposition Right Upper Femur with Internal Fixation Device, Open Approach (ICD-10-PCS; principal; 2021-11-08)
PROC: 0QU607Z Supplement Right Upper Femur with Autologous Tissue Substitute, Open Approach (ICD-10-PCS; 2021-11-08)
PROC: 0QBB0ZZ Excision of Right Lower Femur, Open Approach (ICD-10-PCS; 2021-11-08)
DX: S72.491 Other fracture of lower end of right femur (principal); E11.9 Type 2 diabetes mellitus without complications; I10 Essential (primary) hypertension; Z79.84 Long term (current) use of oral hypoglycemic drugs; Z79.899 Other long term (current) drug therapy; V89.2XXD Person injured in unspecified motor-vehicle accident, traffic, subsequent encounter
CPT/HCPCS: 27472; 73552; 76000; 80048; 85014; 85018; C1713 ×3; C1768; C1776; J0690; J1170; J2370; J2405; J2704; J3010; J3490; S0028